=== PATIENT | female | born 1985 | race Asian ===

== ENCOUNTER 2020-03-17 15:46 | Emergency (ER) | payer MEDICAID ==
[~2020-03-17] VITALS: Ht 160 cm; Wt 71.4 kg
[2020-03-17 15:54] VITALS: TEMP 98.4
[2020-03-17 16:19] LABS: COLLECTION METHOD CLEAN CATCH
[2020-03-17 16:25] LABS: MUCOUS Present /lpf; PH 5 (5-8); SQUAMOUS EPITHELIAL 0-2 /hpf; URINE APPEARANCE Clear; URINE BACTERIA None Seen /hpf; URINE BILIRUBIN Negative (NEGATIVE); URINE BLOOD 1+ (NEGATIVE); URINE COLOR Yellow; URINE GLUCOSE Negative (NEGATIVE); URINE KETONE Negative (NEGATIVE); URINE LEUKOCYTE ESTERASE Trace (NEGATIVE); URINE NITRATE Negative (NEGATIVE); URINE PROTEIN(semi-quant) Negative (NEGATIVE); URINE UROBILINOGEN Negative (NEGATIVE)
[2020-03-17] MEDS ORDERED: FLAGYL 375375 MG PO (16:33)
[2020-03-17 16:49] VITALS: BP 119/87; PULSE 100
== END 2020-03-17 16:50 | disposition home or self-care (01) ==
LOC: COL.ER 15:46
PROVIDERS: Family Medicine
DX: N72 Inflammatory disease of cervix uteri (principal); N76.0 Acute vaginitis
CPT/HCPCS: J0696

== ENCOUNTER 2020-06-04 00:08 | Emergency (ER) | payer MEDICAID ==
[~2020-06-04] VITALS: Ht 160 cm; Wt 68.2 kg
[~2020-06-04 00:08] MED LIST: FLAGYL 375375 MG PO
[2020-06-04 00:12] VITALS: TEMP 97.5
[2020-06-04 00:22] LABS: COLLECTION METHOD CLEAN CATCH
[2020-06-04 00:28] LABS: MUCOUS Present /lpf; PH 6 (5-8); SQUAMOUS EPITHELIAL 0-2 /hpf; URINE APPEARANCE Clear; URINE BACTERIA None Seen /hpf; URINE BILIRUBIN Negative (NEGATIVE); URINE BLOOD 1+ (NEGATIVE); URINE COLOR Yellow; URINE GLUCOSE Negative (NEGATIVE); URINE KETONE Negative (NEGATIVE); URINE LEUKOCYTE ESTERASE Negative (NEGATIVE); URINE NITRATE Negative (NEGATIVE); URINE PROTEIN(semi-quant) 1+ (NEGATIVE); URINE UROBILINOGEN Negative (NEGATIVE); URINE WBC 0-2 /hpf
[2020-06-04 00:45] LABS: BASO % 0.4 % (0.0-2.0); EOS % 0.5 % (0-4.0); GRAN % 49.3 % (42.2-75.2); HEMATOCRIT 42.4 % (37.0-47.0); HEMOGLOBIN 15.1 g/dl (12.5-16.0); LYMPH # 3.6 (1.2-3.4); LYMPH % 44.1 % (20.0-51.0); MEAN CELL VOLUME 87 fl (80.0-100.0); MEAN CORPUSCULAR HEMOGLOBIN 31 pg (27.0-31.0); MEAN CORPUSCULAR HGB CONC 36 g/dl (33.0-37.0); MEAN PLATELET VOLUME 10.4 fl (7.4-10.4); MONO # 0.5 (0.1-0.6); MONO % 5.5 % (1.7-9.3); PLATELET COUNT 294 K/mm3 (130-400); REDCELL DISTRIBUTION WIDTH-CV 11.7 % (11.5-14.5)
[2020-06-04 01:06] LABS: ALBUMIN 4.6 gm/dL (3.5-5.0); BILIRUBIN,TOTAL 0.4 mg/dL (0.0-1.0); CALCIUM 9.3 mg/dL (8.4-10.2); CREATININE, serum 0.68 (0.52-1.25); POTASSIUM 3.8 mmol/L (3.4-5.0)
[2020-06-04] MEDS ORDERED: PHENERGAN 25 TA25 MG PO (03:18)
[2020-06-04] MEDS ORDERED: NORCO 325 MG-51 TAB PO (03:18)
[2020-06-04 03:27] VITALS: BP 126/70; PULSE 66
== END 2020-06-04 03:27 | disposition home or self-care (01) ==
LOC: COL.ER 00:08
PROVIDERS: Emergency Medicine
DX: R10.9 Unspecified abdominal pain (principal); R11.2 Nausea with vomiting, unspecified
CPT/HCPCS: J1885; J2405; J7030; Q9967

== ENCOUNTER 2020-07-14 09:23 | Emergency (ER) | payer MEDICAID ==
[~2020-07-14] VITALS: Ht 160 cm; Wt 72.3 kg
[~2020-07-14 09:23] MED LIST changes: +NORCO 325 MG-51 TAB PO; +PHENERGAN 25 TA25 MG PO
[2020-07-14 10:02] LABS: COLLECTION METHOD CLEAN CATCH
[2020-07-14 10:06] LABS: BASO % 0.3 % (0.0-2.0); EOS % 0.3 % (0-4.0); GRAN # 8.8 (1.4-6.5); GRAN % 67.3 % (42.2-75.2); HEMATOCRIT 44.4 % (37.0-47.0); HEMOGLOBIN 15.2 g/dl (12.5-16.0); LYMPH # 3.5 (1.2-3.4); LYMPH % 26.4 % (20.0-51.0); MEAN CELL VOLUME 91 fl (80.0-100.0); MEAN CORPUSCULAR HEMOGLOBIN 31 pg (27.0-31.0); MEAN CORPUSCULAR HGB CONC 34 g/dl (33.0-37.0); MEAN PLATELET VOLUME 10.4 fl (7.4-10.4); MONO # 0.7 (0.1-0.6); MONO % 5.4 % (1.7-9.3); PLATELET COUNT 269 K/mm3 (130-400); RED BLOOD COUNT 4.88 M/mm3 (4.10-5.30)
[2020-07-14 10:17] LABS: ALBUMIN 4.5 gm/dL (3.5-5.0); BILIRUBIN,TOTAL 0.6 mg/dL (0.0-1.0); CALCIUM 9.4 mg/dL (8.4-10.2); CREATININE, serum 0.63 (0.52-1.25); POTASSIUM 4.1 mmol/L (3.4-5.0); TOTAL PROTEIN 7.7 gm/dL (6.4-8.2)
[2020-07-14 10:48] LABS: MUCOUS Present /lpf; PH 6 (5-8); SQUAMOUS EPITHELIAL 0-2 /hpf; URINE APPEARANCE Clear; URINE BACTERIA None Seen /hpf; URINE BILIRUBIN Negative (NEGATIVE); URINE BLOOD 1+ (NEGATIVE); URINE COLOR Yellow; URINE GLUCOSE Negative (NEGATIVE); URINE KETONE Negative (NEGATIVE); URINE LEUKOCYTE ESTERASE Negative (NEGATIVE); URINE NITRATE Negative (NEGATIVE); URINE PROTEIN(semi-quant) Negative (NEGATIVE); URINE UROBILINOGEN Negative (NEGATIVE)
[2020-07-14] MEDS ORDERED: ZOFRAN ODT4 MG PO (11:15)
[2020-07-14 11:23] VITALS: BP 126/92; PULSE 82; TEMP 97.8
== END 2020-07-14 11:23 | disposition home or self-care (01) ==
LOC: COL.ER 09:23
PROVIDERS: Emergency Medicine
DX: L30.9 Dermatitis, unspecified (principal); R11.10 Vomiting, unspecified; D72.829 Elevated white blood cell count, unspecified; R74.01 Elevation of levels of liver transaminase levels; Z20.822 Contact with and (suspected) exposure to COVID-19; Z32.02 Encounter for pregnancy test, result negative
CPT/HCPCS: J1885; J2405; J7030

== ENCOUNTER 2021-03-11 10:39 | Emergency (ER) | payer MEDICAID ==
[~2021-03-11] VITALS: Ht 162.6 cm; Wt 73.6 kg
[~2021-03-11 10:39] MED LIST changes: +ZOFRAN ODT4 MG PO
[2021-03-11 11:01] VITALS: TEMP 98.7
[2021-03-11] MEDS ORDERED: ANTIVERT 25MG25 MG PO ×2 (11:06→12:58)
[2021-03-11 11:44] LABS: PH 7 (5-8); SQUAMOUS EPITHELIAL 0-2 /hpf; URINE APPEARANCE Clear; URINE BACTERIA Rare /hpf; URINE BILIRUBIN Negative (NEGATIVE); URINE BLOOD 1+ (NEGATIVE); URINE COLOR Straw; URINE GLUCOSE Negative (NEGATIVE); URINE KETONE Negative (NEGATIVE); URINE LEUKOCYTE ESTERASE 1+ (NEGATIVE); URINE NITRATE Negative (NEGATIVE); URINE PROTEIN(semi-quant) Negative (NEGATIVE); URINE UROBILINOGEN Negative (NEGATIVE)
[2021-03-11 12:05] LABS: BASO % 0.3 % (0.0-2.0); EOS % 0.1 % (0-4.0); GRAN # 8.8 K/mm3 (1.4-6.5); GRAN % 76.6 % (42.2-75.2); HEMATOCRIT 44.1 % (37.0-47.0); HEMOGLOBIN 15.8 g/dl (12.5-16.0); LYMPH # 2.1 K/mm3 (1.2-3.4); LYMPH % 18.7 % (20.0-51.0); MEAN CELL VOLUME 87 fl (80.0-100.0); MEAN CORPUSCULAR HEMOGLOBIN 31 pg (27.0-31.0); MEAN CORPUSCULAR HGB CONC 36 g/dl (33.0-37.0); MEAN PLATELET VOLUME 10.7 fl (7.4-10.4); MONO # 0.5 K/mm3 (0.1-0.6); MONO % 3.9 % (1.7-9.3); PLATELET COUNT 257 K/mm3 (130-400); RED BLOOD COUNT 5.06 M/mm3 (4.10-5.30); REDCELL DISTRIBUTION WIDTH-CV 11.9 % (11.5-14.5)
[2021-03-11 12:14] LABS: ALANINE AMINOTRANSFERASE 48 U/L (0-55); ALBUMIN 4.1 gm/dL (3.5-5.0); ALKALINE PHOSPHATASE 90 U/L (40-150); ANION GAP 9 mmol/L (7-16); AST,SGOT 22 U/L (5-34); BILIRUBIN,TOTAL 0.7 mg/dL (0.2-1.2); BLOOD UREA NITROGEN 7 mg/dL (7-19); C-REACTIVE PROTEIN 0.27 mg/dL (0.00-0.50); CALCIUM 9.7 mg/dL (8.4-10.2); CARBON DIOXIDE 22 mmol/L (22-29); CHLORIDE 108 mmol/L (98-107); CREATININE, serum 0.71 mg/dL (0.57-1.11); GLUCOSE 119 mg/dL (70-99); LIPASE 16 U/L (8-78); POTASSIUM 3.7 mmol/L (3.5-4.5); SODIUM 139 mmol/L (136-145); TOTAL PROTEIN 7.6 gm/dL (6.2-8.1)
[2021-03-11 12:20] LABS: TROPONIN-I < 0.010 ng/mL (0.00-0.033)
[2021-03-11] MEDS ORDERED: ZOFRAN ODT4 MG PO (12:36)
[2021-03-11] MEDS ORDERED: CEPHALEXIN500 M1 PO (12:36)
[2021-03-11 12:55] VITALS: BP 132/90; PULSE 77
[2021-03-11 13:08] LABS: COLLECTION METHOD CLEAN CATCH
== END 2021-03-11 12:59 | disposition home or self-care (01) ==
LOC: COL.ER 10:39
PROVIDERS: Physician Assistant
DX: N39.0 Urinary tract infection, site not specified (principal); J45.909 Unspecified asthma, uncomplicated
CPT/HCPCS: J2405; J7030

== ENCOUNTER 2021-07-04 22:29 | Emergency (ER) | payer MEDICAID ==
[~2021-07-04] VITALS: Ht 160 cm; Wt 65.9 kg
[~2021-07-04 22:29] MED LIST changes: +ANTIVERT 25MG25 MG PO; +CEPHALEXIN500 M1 PO
[2021-07-04 23:14] LABS: COLLECTION METHOD CATHETER
[2021-07-04 23:26] LABS: MUCOUS Present (NOT PRESENT); PH 5 (5-8); URINE APPEARANCE Hazy (CLEAR/HAZY); URINE BACTERIA None Seen /hpf (NONE SEEN); URINE BILIRUBIN Negative (NEGATIVE); URINE BLOOD 2+ (NEGATIVE); URINE COLOR Yellow (YELLOW); URINE GLUCOSE Negative (NEGATIVE); URINE KETONE Negative (NEGATIVE); URINE LEUKOCYTE ESTERASE Trace (NEGATIVE); URINE NITRATE Negative (NEGATIVE); URINE PROTEIN(semi-quant) 1+ (NEGATIVE); URINE UROBILINOGEN Negative (NEGATIVE)
[2021-07-05 00:27] VITALS: BP 134/98; PULSE 82
== END 2021-07-05 00:03 | disposition home or self-care (01) ==
LOC: COL.ER 22:29
PROVIDERS: Emergency Medicine
DX: O26.891 Other specified pregnancy related conditions, first trimester (principal); R10.30 Lower abdominal pain, unspecified; Z3A.01 Less than 8 weeks gestation of pregnancy

== ENCOUNTER 2021-07-21 19:44 | Emergency (ER) | payer MEDICAID ==
[~2021-07-21] VITALS: Ht 160 cm; Wt 72.7 kg
[2021-07-21 19:52] VITALS: TEMP 97.9
[2021-07-21 20:23] LABS: BASO % 0.3 % (0.0-2.0); EOS # 0.1 K/mm3 (0.0-0.7); EOS % 0.4 % (0.0-4.0); GRAN # 9.1 K/mm3 (1.4-6.5); GRAN % 64.6 % (42.2-75.2); HEMATOCRIT 44.7 % (37.0-47.0); HEMOGLOBIN 15.5 g/dl (12.5-16.0); LYMPH % 28.7 % (20.0-51.0); MEAN CELL VOLUME 89 fl (80.0-100.0); MEAN CORPUSCULAR HEMOGLOBIN 31 pg (27-31); MEAN CORPUSCULAR HGB CONC 35 g/dl (33.0-37.0); MEAN PLATELET VOLUME 10.5 fl (7.4-10.4); MONO # 0.8 K/mm3 (0.1-0.6); MONO % 5.6 % (1.7-9.3); PLATELET COUNT 262 K/mm3 (130-400); RED BLOOD COUNT 5.02 M/mm3 (4.10-5.30); REDCELL DISTRIBUTION WIDTH-CV 11.7 % (11.5-14.5)
[2021-07-21 20:36] LABS: ALBUMIN 4.2 gm/dL (3.5-5.0); BILIRUBIN,TOTAL 0.3 mg/dL (0.2-1.2); CALCIUM 9.9 mg/dL (8.4-10.2); CREATININE, serum 0.76 mg/dL (0.57-1.11); POTASSIUM 3.7 mmol/L (3.5-4.5); TOTAL PROTEIN 7.5 gm/dL (6.2-8.1)
[2021-07-21 22:03] VITALS: BP 146/89; PULSE 76
== END 2021-07-21 22:03 | disposition home or self-care (01) ==
LOC: COL.ER 19:44
PROVIDERS: Emergency Medicine
DX: O20.0 Threatened abortion (principal); Z3A.01 Less than 8 weeks gestation of pregnancy

== ENCOUNTER 2021-08-17 22:08 | Emergency (ER) | payer MEDICAID ==
[~2021-08-17] VITALS: Ht 160 cm; Wt 69.5 kg
[2021-08-17 23:14] LABS: COLLECTION METHOD CLEAN CATCH
[2021-08-17 23:21] LABS: PH 7 (5-8); SQUAMOUS EPITHELIAL 0-2 /hpf (0-10); URINE APPEARANCE Clear (CLEAR/HAZY); URINE BACTERIA Rare /hpf (NONE SEEN); URINE BILIRUBIN Negative (NEGATIVE); URINE BLOOD 2+ (NEGATIVE); URINE COLOR Straw (YELLOW); URINE GLUCOSE Negative (NEGATIVE); URINE KETONE Negative (NEGATIVE); URINE LEUKOCYTE ESTERASE Negative (NEGATIVE); URINE NITRATE Negative (NEGATIVE); URINE PROTEIN(semi-quant) Negative (NEGATIVE); URINE RBC 0-2 /hpf (0-2); URINE UROBILINOGEN Negative (NEGATIVE)
[2021-08-17 23:36] LABS: BASO % 0.3 % (0.0-2.0); EOS # 0.1 K/mm3 (0.0-0.7); EOS % 0.4 % (0.0-4.0); GRAN # 8.3 K/mm3 (1.4-6.5); GRAN % 67.4 % (42.2-75.2); HEMATOCRIT 42.7 % (37.0-47.0); HEMOGLOBIN 15.3 g/dl (12.5-16.0); LYMPH # 3.3 K/mm3 (1.2-3.4); MEAN CELL VOLUME 86 fl (80.0-100.0); MEAN CORPUSCULAR HEMOGLOBIN 31 pg (27-31); MEAN CORPUSCULAR HGB CONC 36 g/dl (33.0-37.0); MEAN PLATELET VOLUME 10.5 fl (7.4-10.4); MONO # 0.6 K/mm3 (0.1-0.6); MONO % 4.6 % (1.7-9.3); PLATELET COUNT 271 K/mm3 (130-400); RED BLOOD COUNT 4.95 M/mm3 (4.10-5.30); REDCELL DISTRIBUTION WIDTH-CV 11.9 % (11.5-14.5)
[2021-08-17 23:54] LABS: ALBUMIN 3.9 gm/dL (3.5-5.0); BILIRUBIN,TOTAL 0.4 mg/dL (0.2-1.2); C-REACTIVE PROTEIN 0.69 mg/dL (0.00-0.50); CALCIUM 9.6 mg/dL (8.4-10.2); CREATININE, serum 0.61 mg/dL (0.57-1.11); POTASSIUM 3.7 mmol/L (3.5-4.5); TOTAL PROTEIN 7.7 gm/dL (6.2-8.1)
[2021-08-18 00:47] VITALS: BP 124/69; PULSE 78; TEMP 98.2
== END 2021-08-18 00:48 | disposition home or self-care (01) ==
LOC: COL.ER 22:08
PROVIDERS: Nurse Practitioner
DX: O26.891 Other specified pregnancy related conditions, first trimester (principal); R10.30 Lower abdominal pain, unspecified; O21.9 Vomiting of pregnancy, unspecified; Z3A.11 11 weeks gestation of pregnancy
CPT/HCPCS: J2550; J7030

== ENCOUNTER 2021-09-03 08:52 | Emergency (ER) | payer MEDICAID ==
[~2021-09-03] VITALS: Ht 160 cm; Wt 70.0 kg
[2021-09-03 08:57] VITALS: TEMP 100
[2021-09-03 11:16] VITALS: BP 114/81; PULSE 103
== END 2021-09-03 11:33 | disposition home or self-care (01) ==
LOC: COL.ER 08:52
DX: O98.511 Other viral diseases complicating pregnancy, first trimester (principal); U07.1 COVID-19; O98.311 Other infections with a predominantly sexual mode of transmission complicating pregnancy, first trimester; A74.9 Chlamydial infection, unspecified; Z3A.13 13 weeks gestation of pregnancy; Z28.310 Unvaccinated for COVID-19

== ENCOUNTER 2021-10-07 22:02 | Outpatient (CLI) | payer MEDICAID ==
[~2021-10-07] VITALS: Ht 162.6 cm; Wt 66.8 kg
--- NOTE | 2021-10-07 22:10 | NUR ---
2210 19 WEEK GEST G6L5 TO LR5 WITH C/O DECREASED MOVEMENT AND CONTRACTION PAINS. DOPPLED WITH FHT'S 140-150. ASKED IF HAS FELT THE BABY MOVE ALOT WITH THIS AND STATES MAYBE ONCE. STATES HAS FELT STOMACH GETTING TIGHT ABOUT EVERY 3-4 MINUTES SINCE AROUND 2129 AND IS BECOMING VERY PAINFUL. UTERUS PALPATED FOR SEVERAL MINUTES AND DURING COMPLAINT BY PT OF UTERINE PAIN AND REMAINS SOFT THE WHOLE TIME. AFTER FEW MINUTES PT STATES PAINS ARE LESS INTENSE AND NOT COMING OFTEN. ADM ASSESSMENT DONE. 2235 FEELING BETTER AND NOT FEELING CONTRACTIONS LIKE ON ADM. DR DAN NOTIFIED AND ORDER TO DISMISS RECIEVED. 2245 HOME WITH INSTRUCTIONS.
[2021-10-07] MEDS ORDERED: ASPIRIN 81M81 MG/TA2 PO (22:17)
[2021-10-07 22:20] VITALS: BP 139/89; PULSE 94; TEMP 98.3
== END 2021-10-07 22:45 | disposition home or self-care (01) ==
LOC: LDRO 22:02
DX: O36.8120 Decreased fetal movements, second trimester, not applicable or unspecified (principal); O26.892 Other specified pregnancy related conditions, second trimester; R10.2 Pelvic and perineal pain; Z3A.18 18 weeks gestation of pregnancy

== ENCOUNTER 2021-10-12 02:38 | Emergency (ER) | payer MEDICAID ==
[~2021-10-12] VITALS: Ht 160 cm; Wt 66.8 kg
[~2021-10-12 02:38] MED LIST changes: +ASPIRIN 81M81 MG/TA2 PO
[2021-10-12 02:42] VITALS: TEMP 98.9
[2021-10-12 03:43] LABS: BASO % 0.2 % (0.0-2.0); EOS % 0.2 % (0.0-4.0); GRAN # 12.8 K/mm3 (1.4-6.5); GRAN % 84.4 % (42.2-75.2); HEMOGLOBIN 12.1 g/dl (12.5-16.0); LYMPH # 1.5 K/mm3 (1.2-3.4); LYMPH % 9.9 % (20.0-51.0); MEAN CELL VOLUME 90 fl (80.0-100.0); MEAN CORPUSCULAR HEMOGLOBIN 32 pg (27-31); MEAN CORPUSCULAR HGB CONC 35 g/dl (33.0-37.0); MEAN PLATELET VOLUME 10.2 fl (7.4-10.4); MONO # 0.8 K/mm3 (0.1-0.6); PLATELET COUNT 228 K/mm3 (130-400); RED BLOOD COUNT 3.84 M/mm3 (4.10-5.30); REDCELL DISTRIBUTION WIDTH-CV 12.7 % (11.5-14.5)
[2021-10-12 03:49] LABS: HEMATOCRIT 34.4 % (37.0-47.0)
[2021-10-12 03:50] LABS: STREP SCREEN NEGATIVE
[2021-10-12 04:01] LABS: ALBUMIN 3.1 gm/dL (3.5-5.0); BILIRUBIN,TOTAL 0.4 mg/dL (0.2-1.2); CALCIUM 8.8 mg/dL (8.4-10.2); CREATININE, serum 0.57 mg/dL (0.57-1.11); POTASSIUM 3.5 mmol/L (3.5-4.5); TOTAL PROTEIN 6.5 gm/dL (6.2-8.1)
[2021-10-12 04:02] LABS: COLLECTION METHOD CLEAN CATCH
[2021-10-12 04:07] LABS: MUCOUS Present (NOT PRESENT); PH 7 (5-8); SQUAMOUS EPITHELIAL 0-2 /hpf (0-10); URINE APPEARANCE Clear (CLEAR/HAZY); URINE BACTERIA None Seen /hpf (NONE SEEN); URINE BILIRUBIN Negative (NEGATIVE); URINE BLOOD 2+ (NEGATIVE); URINE COLOR Yellow (YELLOW); URINE GLUCOSE Negative (NEGATIVE); URINE KETONE Negative (NEGATIVE); URINE LEUKOCYTE ESTERASE Negative (NEGATIVE); URINE NITRATE Negative (NEGATIVE); URINE PROTEIN(semi-quant) Negative (NEGATIVE); URINE UROBILINOGEN Negative (NEGATIVE)
[2021-10-12 05:25] VITALS: BP 125/84; PULSE 110
== END 2021-10-12 05:34 | disposition home or self-care (01) ==
LOC: COL.ER 02:38
PROVIDERS: Emergency Medicine Emergency Medical Services
DX: O26.892 Other specified pregnancy related conditions, second trimester (principal); R50.9 Fever, unspecified; O99.112 Other diseases of the blood and blood-forming organs and certain disorders involving the immune mechanism complicating pregnancy, second trimester; D72.829 Elevated white blood cell count, unspecified; Z20.822 Contact with and (suspected) exposure to COVID-19; Z28.310 Unvaccinated for COVID-19

== ENCOUNTER 2021-10-16 22:01 | Emergency (ER) | payer MEDICAID ==
[~2021-10-16] VITALS: Ht 160 cm; Wt 66.8 kg
[2021-10-16 22:23] VITALS: BP 133/95; TEMP 97.6
[2021-10-16 22:42] VITALS: PULSE 88
== END 2021-10-16 22:46 | disposition home or self-care (01) ==
LOC: COL.ER 22:01
DX: O98.512 Other viral diseases complicating pregnancy, second trimester (principal); B34.9 Viral infection, unspecified; Z3A.19 19 weeks gestation of pregnancy; Z28.310 Unvaccinated for COVID-19

== ENCOUNTER 2022-02-13 03:11 | Outpatient (CLI) | payer MEDICAID ==
[~2022-02-13] VITALS: Ht 162.6 cm; Wt 76.4 kg
[2022-02-13 03:30] VITALS: BP 120/80; PULSE 98; TEMP 98.4
--- NOTE | 2022-02-13 03:30 | NUR ---
UTERINE IRRITABILITY NOTED.
--- NOTE | 2022-02-13 03:40 | NUR ---
[address] PT OF DR DAN, 36.3 PRESENTS WITH CONTRACTIONS, BACK PAIN, PRESSURE. FHT 135, CATEGORY I, >15X15, SVE 2/70/-2, IRREGULAR CONTRACTION PATTERN, 2-41 MINS, PALPATES MILD, VS 120/80, 98PULSE, 98.4 TEMP, 18 RESP. GBS UNK, REPORTS BACK PAIN BEGAN "COUPLE WEEKS AGO" SEES PT FOR PELVIC PAIN. DENIES TAKING ANYTHING FOR PAIN.
[2022-02-13 04:30] VITALS: BP 113/78; PULSE 87; TEMP 98.2
--- NOTE | 2022-02-13 04:30 | NUR ---
CONTRACTION X3 60-80 SECONDS, PALPATES MILD, REPORTS "SPREADING OUT". GILBERTO TO SEMI FOWLERS FOLLOWING SVE.
--- NOTE | 2022-02-13 05:30 | NUR ---
DISCHARGE TEACHING COMPLETED, DISCOMFORTS, LABOR SIGNS, TO CONTINUE WITH PHYSICAL THERAPY, KEEP FUTURE OB VISITS, WHEN TO RETURN TO FACILITY-DECREASED MOVEMENT, LEAKING/RUPTURE OF MEMBRANES, VAGINAL BLEEDING MORE THAN SMALL SPOTTING/STREAKING. PRE E SIGNS AND SYMPTOMS. VERBALIZES UNDERSTANDING. TO CALL CLINIC OR FACILTY WITH FURTHER QUESTIONS OR CONCERNS.
== END 2022-02-13 05:33 | disposition home or self-care (01) ==
LOC: LDRO 03:11
DX: Z34.90 Encounter for supervision of normal pregnancy, unspecified, unspecified trimester (principal); Z3A.00 Weeks of gestation of pregnancy not specified